=== PATIENT | male | born 1950 | race Caucasian/White ===

== ENCOUNTER 2018-03-28 14:26 | Outpatient (RCR) | payer MEDICARE, OTHER ==
[~2018-03-28 14:26] MED LIST: ASPIR 8181 MG PO; ATORVASTATIN CA20 MG PO; BYSTOLIC10 MG PO; CATAPRES0.2 MG PO; CLONIDINE HCL0.3 MG PO; CLOPIDOGREL75 MG PO; FUROSEMIDE20 MG PO; GABAPENTIN300 MG PO; GLIPIZIDE ER5 MG PO; HUMALOG100 UNIT/3 SQ; Insulin Detemir SQ; LANTUS 3ML100 UNITS/ SQ; LANTUS100 UNITS/ SQ; LISINOPRIL20 MG PO; LISINOPRIL40 MG PO; METFORMIN HCL500 MG PO; NORCO 5-325 TA1 EACH PO; NOVOLOG100 UNIT/1 SQ; NOVOLOG100 UNITS/ SQ; ONGLYZA5 MG PO; TERAZOSIN HCL1 MG PO; TRIAMTERENE-HC1 EAC1 PO; TRIAMTERENE-HCTZ1 EA PO; ULTRAM 50MG50 MG PO; WOUND VAC TOP
== END 2018-04-07 ==
LOC: WCC 14:26
PROVIDERS: ATTEND Podiatrist Foot & Ankle Surgery
DX: E11.65 Type 2 diabetes mellitus with hyperglycemia (principal); E11.621 Type 2 diabetes mellitus with foot ulcer; E11.21 Type 2 diabetes mellitus with diabetic nephropathy; E11.40 Type 2 diabetes mellitus with diabetic neuropathy, unspecified; M86.18 Other acute osteomyelitis, other site; L97.422 Non-pressure chronic ulcer of left heel and midfoot with fat layer exposed; T25.222A Burn of second degree of left foot, initial encounter; S90.512A Abrasion, left ankle, initial encounter; S90.812A Abrasion, left foot, initial encounter; I10 Essential (primary) hypertension; X58.XXXA Exposure to other specified factors, initial encounter; Z01.810 Encounter for preprocedural cardiovascular examination
CPT/HCPCS: 15275 ×2; 29445 ×2; 99213; Q4131 ×2

== ENCOUNTER 2018-05-02 14:47 | Outpatient (RCR) | payer MEDICARE, OTHER ==
[~2018-05-02 14:47] MED LIST changes: +MINERAL OIL/PETROLAT/GLYCERI 6OZ BTL ONE
[2018-05-02] MEDS ORDERED: MINERAL OIL/PETROLAT/GLYCERI 6OZ BTL ONE (17:59)
== END 2018-05-08 ==
LOC: WCC 14:47
PROVIDERS: ATTEND Family Medicine Adult Medicine
DX: E11.65 Type 2 diabetes mellitus with hyperglycemia (principal); E11.21 Type 2 diabetes mellitus with diabetic nephropathy; E11.40 Type 2 diabetes mellitus with diabetic neuropathy, unspecified; E11.621 Type 2 diabetes mellitus with foot ulcer; M86.18 Other acute osteomyelitis, other site; L97.422 Non-pressure chronic ulcer of left heel and midfoot with fat layer exposed; S90.512A Abrasion, left ankle, initial encounter; S90.812A Abrasion, left foot, initial encounter; T25.222A Burn of second degree of left foot, initial encounter; I10 Essential (primary) hypertension; X58.XXXA Exposure to other specified factors, initial encounter; Z01.810 Encounter for preprocedural cardiovascular examination

== ENCOUNTER 2018-06-06 15:00 | Outpatient (RCR) | payer MEDICARE, OTHER ==
[~2018-06-06 15:00] MED LIST changes: -MINERAL OIL/PETROLAT/GLYCERI 6OZ BTL ONE
== END 2018-06-08 ==
LOC: WCC 15:00
PROVIDERS: ATTEND Podiatrist Foot & Ankle Surgery
DX: E11.622 Type 2 diabetes mellitus with other skin ulcer (principal); E11.21 Type 2 diabetes mellitus with diabetic nephropathy; E11.40 Type 2 diabetes mellitus with diabetic neuropathy, unspecified; E11.65 Type 2 diabetes mellitus with hyperglycemia; E11.621 Type 2 diabetes mellitus with foot ulcer; M86.18 Other acute osteomyelitis, other site; L98.491 Non-pressure chronic ulcer of skin of other sites limited to breakdown of skin; T25.222A Burn of second degree of left foot, initial encounter; S90.512A Abrasion, left ankle, initial encounter; S90.812A Abrasion, left foot, initial encounter; I10 Essential (primary) hypertension; X58.XXXA Exposure to other specified factors, initial encounter; Z01.810 Encounter for preprocedural cardiovascular examination

== ENCOUNTER 2018-07-04 12:55 | Outpatient (RCR) | payer MEDICARE, OTHER | END 2018-07-08 | LOC: WCC 12:55 | PROVIDERS: ATTEND Podiatrist Foot & Ankle Surgery | DX: E11.622 Type 2 diabetes mellitus with other skin ulcer (principal); E11.621 Type 2 diabetes mellitus with foot ulcer; E11.65 Type 2 diabetes mellitus with hyperglycemia; E11.21 Type 2 diabetes mellitus with diabetic nephropathy; E11.40 Type 2 diabetes mellitus with diabetic neuropathy, unspecified; M86.18 Other acute osteomyelitis, other site; L98.491 Non-pressure chronic ulcer of skin of other sites limited to breakdown of skin; T25.222A Burn of second degree of left foot, initial encounter; S90.512A Abrasion, left ankle, initial encounter; S90.812A Abrasion, left foot, initial encounter; I10 Essential (primary) hypertension; X58.XXXA Exposure to other specified factors, initial encounter; Z01.810 Encounter for preprocedural cardiovascular examination | CPT/HCPCS: 11042; 15275; 99213 ×2; Q4121 ==

== ENCOUNTER 2018-07-18 13:50 | Outpatient (RCR) | payer MEDICARE, OTHER ==
[2018-10-05] MEDS ORDERED: BACTRIM DS TAB1 EACH PO (11:19)
[2018-10-05] MEDS ORDERED: LISINOPRIL10 MG PO (11:19)
[2018-10-05] MEDS ORDERED: BASAGLAR SC (11:20)
[2018-10-05] MEDS ORDERED: PLAVIX75 MG PO (11:21)
== END 2018-08-08 ==
LOC: WCC 13:50
PROVIDERS: ATTEND Family Medicine
DX: E11.622 Type 2 diabetes mellitus with other skin ulcer (principal); E11.21 Type 2 diabetes mellitus with diabetic nephropathy; E11.65 Type 2 diabetes mellitus with hyperglycemia; E11.40 Type 2 diabetes mellitus with diabetic neuropathy, unspecified; E11.621 Type 2 diabetes mellitus with foot ulcer; M86.18 Other acute osteomyelitis, other site; T25.222A Burn of second degree of left foot, initial encounter; L98.491 Non-pressure chronic ulcer of skin of other sites limited to breakdown of skin; S90.512A Abrasion, left ankle, initial encounter; S90.812A Abrasion, left foot, initial encounter; I10 Essential (primary) hypertension; X58.XXXA Exposure to other specified factors, initial encounter; Z01.810 Encounter for preprocedural cardiovascular examination
CPT/HCPCS: 36415; 82948

== ENCOUNTER 2018-10-10 08:04 | Inpatient (IN) | payer MEDICARE, OTHER ==
[~2018-10-10] VITALS: Ht 177.8 cm; Wt 101.2 kg
[~2018-10-10 08:04] MED LIST changes: +BACTRIM DS TAB1 EACH PO; +BASAGLAR SC; +LISINOPRIL10 MG PO; +PLAVIX75 MG PO
--- OUTSIDE RECORDS SUMMARY | 2018-10-10 08:07 | XMS REPORT ---
Author Author [facility] Address Unknown Phone Unavailable Care Team Providers Care Academic Director Name Role Phone BERNICE HARDING Unavailable Unavailable Problems This patient has no known problems. Allergies, Adverse Reactions, Alerts This patient has no known allergies or adverse reactions. Medications This patient has no known medications. Results Test Description Test Time Test Comments Text Results Atomic Results Result Comments CHEST 2 VIEWS 2018-10-05 11:39:00 [place] [id number] Patient Name: MEREDITH RICE MR #: [id number] : 1950 Age/Sex: 68/M Req #: [id number] Adm Physician: Ordered by: BERNICE HARDING DP Report #: [id number] Location: OR Room/Bed: Procedure: [id number] DX/CHEST 2 VIEWS Exam Date: 10/05/18 Exam Time: 1118 REPORT STATUS: Signed EXAMINATION: CHEST 2 VIEWS COMPARISON: None FINDINGS: TUBES and LINES: None. LUNGS: Lungs are well inflated. Lungs are clear. There is no evidence of pneumonia or pulmonary edema. PLEURA: No pleural effusion or pneumothorax. HEART AND MEDIASTINUM: The cardiomediastinal silhouette is unremarkable. BONES AND SOFT TISSUES: No acute osseous lesion. Soft tissues are unremarkable. UPPER ABDOMEN: No free air under the diaphragm. IMPRESSION: No acute radiographic abnormality. Signed by: Dr. Tian Reid MD on 10/05/2018 11:42 AM Dictated By: TIAN REID MD 1142 Transcribed By: LAYTON on 10/05/18 114 COPY TO: BERNICE TOLEDO DPM
[2018-10-10 10:13] LABS: BILIRUBIN,URINE NEGATIVE (NEGATIVE); CLARITY,URINE CLEAR (CLEAR); COLOR,URINE YELLOW (YELLOW); KETONES,URINE NEGATIVE (NEGATIVE); LEUKOCYTE ESTERASE ,URINE NEGATIVE (NEGATIVE); NITRITE,URINE NEGATIVE (NEGATIVE); PROTEIN,URINE DIPSTICK NEGATIVE (NEGATIVE); URINE UROBILINOGEN 0.2 mg/dL (0.2 - 1)
[2018-10-10 10:16] LABS: INR 0.95; PARTIAL THROMBOPLASTIN TIME 32.2 seconds (23.8-35.5); PROTHROMBIN TIME 13.5 seconds (11.9-14.5)
--- NOTE | 2018-10-10 10:25 | Diagnostic Imaging Report ---
Exam: Left foot series, 3 views. Clinical History: Diabetes, fifth metatarsal symptoms Comparison: None. Findings: No evidence of acute fracture or malalignment. There is a sclerotic appearance at the base of the first second and third metatarsals as well as adjacent cuneiforms. There is also likely fragmentation of the cuneiforms. There is a patchy lytic appearance at the head of the fifth metatarsal and base of the fifth proximal phalanx. There are diffuse vascular calcifications. Large plantar calcaneal spur. Achilles enthesopathy. Impression: Patchy lytic changes at the head of the fifth metatarsal and base of the fifth proximal phalanx could represent osteomyelitis. MRI may be considered for further evaluation. Sclerotic appearance and fragmentation in the mid foot, suggestive of neuropathic foot in this patient with diabetes. Chronic osteomyelitis is also possible in the appropriate clinical context. Signed by: Dr. Munira Sotomayor MD on 10/10/2018 10:22 AM
[2018-10-10 10:26] LABS: WBC,URINE (MAN) 0-5 /HPF (0-5)
[2018-10-10 10:27] LABS: BACTERIA,URINE RARE /HPF; EPITHELIAL CELLS,URINE RARE /LPF
[2018-10-10 10:28] LABS: HYALINE CASTS >15 (0-1)
[2018-10-10] MEDS ORDERED: ONDANSETRON HCL INJ 2 MG/ML VIAL IV PRN (11:15)
[2018-10-10] MEDS ORDERED: VANCOMYCIN 1GM/NS 250 ML 250 ML IV ONE (11:15)
[2018-10-10] MEDS ORDERED: SODIUM CHLORIDE 0.9% 1000ML 1,000 ML IV ONE ×2 (11:15→15:00)
[2018-10-10] MEDS ORDERED: MORPHINE SULFATE 2 MG/ML SYR IV PRN (11:15)
--- NOTE | 2018-10-10 12:11 | NUR ---
LAB NOTIFIED REGARDING LABS THAT HEMOLYZED. RECOLLECTING
[2018-10-10 12:39] LABS: BASOPHILS % 0.4 % (0.0-1.0); EOSINOPHILS # (AUTO) 0.1 (0.0-0.4); EOSINOPHILS % 0.8 % (0.0-6.0); HEMATOCRIT 38.2 % (38.2-49.6); HEMOGLOBIN 12.3 g/dL (14.0-18.0); LYMPHOCYTES # (AUTO) 1.1 (1.0-3.2); LYMPHOCYTES % 11.5 % (18.0-39.1); MEAN CORPUSCULAR HEMOGLOBIN 28.6 pg (28-32); MEAN CORPUSCULAR HGB CONC 32.2 g/dL (31-35); MEAN CORPUSCULAR VOLUME 88.8 fL (81-99); MONOCYTES # (AUTO) 0.9 (0.2-0.8); MONOCYTES % 9.5 % (4.4-11.3); NEUTROPHILS # (AUTO) 7.2 (2.1-6.9); NEUTROPHILS % 77.5 % (38.7-80.0); PLATELET COUNT 270 x10e3/uL (140-360); RED CELL DISTRIBUTION WIDTH 13.2 % (11.7-14.4)
[2018-10-10 12:59] LABS: ALBUMIN 3.4 g/dL (3.5-5.0); ALBUMIN/GLOBULIN RATIO 0.9 (0.8-2.0); ANION GAP 15.7 mmol/L (8-16); CALCIUM 8.9 mg/dL (8.4-10.2); CREATININE, SERUM 3.62 mg/dL (0.72-1.25); MAGNESIUM 2.3 MG/DL (1.3-2.1); POTASSIUM 5.7 mmol/L (3.5-5.1)
[2018-10-10 13:05] LABS: CREATINE KINASE MB 1.6 ng/mL (0-5.0)
[2018-10-10] MEDS ORDERED: SOD POLYSTYRENE SULFONATE SUSP 15 GM/60 ML BTL PO ONE (13:15)
[2018-10-10] MEDS ORDERED: LACTULOSE SYRUP 20 GM/30 ML UDC PO ONE (13:15)
[2018-10-10 14:25] VITALS: BP 98/61
--- NOTE | 2018-10-10 14:25 | NUR ---
PATIENT RECEIVED FROM ER PER STRETCHER. ALERT AND VERBALLY RESPONSIVE. SKIN WARM AND DRY TO TOUCH, RESPIRATION EVEN AND UNLABORED. ABDOMEN SOFT AND NON DISTENDED. WOUND TO SIDE OF LEFT FOOT AND UNDER LEFT GREAT TOE WITH WET TO DRY DRESSING APPLIED; PSORIASIS ALL OVER THE BODY, SKIN TEAR TO RIGHT WRIST, REDNESS TO SACRUM. YELLOW SOCKS APPLIED, URINAL PROVIDED. PATIENT ORIENTED TO SURROUNDINGS. BED IN LOWER POSITION, CALL LIGHT AT REACH. INSTRUCTED TO CALL FOR ASSISTANCE NEEDED. AT BED SIDE.
[2018-10-10] MEDS ORDERED: LACTULOSE SYRUP 20 GM/30 ML UDC PO STA (14:53)
[2018-10-10] MEDS: PIPERACILLIN/TAZO 2.25 GM 50 ML IV SCH ×3 (14:55→23:47)
[2018-10-10] MEDS ORDERED: VANCOMYCIN 1GM/NS 250 ML 250 ML IV SCH ×2 (15:00)
[2018-10-10 15:41] LABS: CREATININE,URINE RANDOM 89.73 mg/dL (63-166)
[2018-10-10] MEDS: SOD POLYSTYRENE SULFONATE SUSP 15 GM/60 ML BTL PO SCH ×2 (15:53→16:00)
[2018-10-10] MEDS: SODIUM CHLORIDE 0.9% 1000ML 1,000 ML IV SCH (15:56)
[2018-10-10 15:59] VITALS: BP 98/61
--- NOTE | 2018-10-10 17:02 | Consultation ---
DATE OF CONSULTATION: October 10, 2018 RENAL CONSULTATION HISTORY OF PRESENT ILLNESS: This is a 68-year-old gentleman, apparently follows up with Dr. Buckner, renal specialist. Brought in for infected foot for debridement tomorrow. Surgery could not be done as an outpatient because his potassium was elevated. He was re-routed here to the hospital. He is currently awake, alert, denies any complaints. Has longstanding history of diabetes with diabetic kidney disease, peripheral vascular disease, diabetic foot ulcer. Also has history of hypertension. He denies any history of kidney stone disease, prostate problems, coronary artery disease, prior CVA. ALLERGIES: HE IS ALLERGIC TO IODINE. CURRENT MEDICATIONS: Include normal saline going at 75 mL an hour. Received 1 dose of vancomycin. He received 60 grams of Kayexalate for his hyperkalemia in the emergency room. He is currently alert, in no apparent distress. His laboratory tests show white count 9.25, hemoglobin 12.3. Potassium 5.7. Bicarbonate 21 with a creatinine 3.62. SOCIAL HISTORY: Patient denies smoking or alcohol use. FAMILY HISTORY: Significant for hypertension. He has got plenty of record of following up with wound care clinic and diabetic foot ulcer. He has had prior appendectomy and rhinoplasty. PHYSICAL EXAMINATION: GENERAL: Awake, alert, lying supine. No apparent distress. VITALS: Blood pressure of 130/60, pulse rate 78, afebrile. HEAD AND NECK: Cornea clear. Mucosa moist. Neck veins flat. LUNGS: Relatively clear. HEART: S1/S2 audible. ABDOMEN: Otherwise soft, nontender. LOWER EXTREMITY EXAMINATION: Shows no edema and dressing noted. IMPRESSION: Hyperkalemia. Mild distal renal tubular acidosis. Underlying diabetic nephropathy with acute kidney injury component. 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 White count noted. To get debridement. Will correct hyperkalemia with dietary control and Kayexalate and lactulose. Avoid nonsteroidal yzoj-qhbrjqnnnxmo-nvwe medication, ZUHAIR and ARB inhibitors. Please see orders. Job#: [id number] EV
--- NOTE | 2018-10-10 19:13 | NUR ---
PT IS RESTING IN BED. NO RESPIRATORY DISTRESS NOTED, BED IN THE LOWEST POSITION, LOCKED, AND CALL LIGHT WITHIN REACH. WILL CONTINUE TO MONITOR.
[2018-10-10 20:00] VITALS: BP 97/55
[2018-10-10 23:29] VITALS: BP 97/55
[2018-10-11] VITALS (7 sets, daily range): BP systolic 105–145; BP diastolic 59–72
[2018-10-11] MEDS: PIPERACILLIN/TAZO 2.25 GM 50 ML IV SCH (05:01)
[2018-10-11 05:35] LABS: BASOPHILS % 0.3 % (0.0-1.0); EOSINOPHILS # (AUTO) 0.1 (0.0-0.4); EOSINOPHILS % 2.1 % (0.0-6.0); HEMATOCRIT 36.8 % (38.2-49.6); LYMPHOCYTES # (AUTO) 1.1 (1.0-3.2); LYMPHOCYTES % 16.3 % (18.0-39.1); MEAN CORPUSCULAR HEMOGLOBIN 28.6 pg (28-32); MEAN CORPUSCULAR HGB CONC 32.6 g/dL (31-35); MEAN CORPUSCULAR VOLUME 87.6 fL (81-99); MONOCYTES # (AUTO) 0.7 (0.2-0.8); MONOCYTES % 10.3 % (4.4-11.3); NEUTROPHILS # (AUTO) 4.8 (2.1-6.9); NEUTROPHILS % 70.7 % (38.7-80.0); PLATELET COUNT 225 x10e3/uL (140-360); RED CELL DISTRIBUTION WIDTH 13.4 % (11.7-14.4)
[2018-10-11 06:02] LABS: ALBUMIN 3.1 g/dL (3.5-5.0); ALBUMIN/GLOBULIN RATIO 0.9 (0.8-2.0); ANION GAP 14.6 mmol/L (8-16); CALCIUM 8.2 mg/dL (8.4-10.2); CREATININE, SERUM 3.93 mg/dL (0.72-1.25); POTASSIUM 3.6 mmol/L (3.5-5.1)
--- NOTE | 2018-10-11 06:31 | History and Physical ---
REASON FOR ADMISSION: Hyperkalemia, vvuhu-sn-ungrkxw kidney disease. HISTORY OF PRESENT ILLNESS: The patient is a gentleman with osteomyelitis of the left foot, who is undergoing elective outpatient surgery where he was then noticed to have worsening of his chronic kidney disease, as well as hyperkalemia. He was admitted for further evaluation prior to his surgical intervention. The patient states he feels good. REVIEW OF SYSTEMS: Denies any chest pain, fever, chills, nausea, vomiting, headache, dizziness. PAST MEDICAL HISTORY: Significant for diabetes, chronic kidney disease, stage 3-4, hypertension. MEDICATIONS: See MAR. ALLERGIES: IODINE. SOCIAL HISTORY: Nondrinker and nonsmoker. FAMILY HISTORY: Noncontributory. PHYSICAL EXAMINATION VITALS: 96.9, pulse 88, blood pressure 122/60, sats 95% on room air. GENERAL: He is in no apparent distress lying in bed. NECK: Supple. No lymphadenopathy. CARDIOVASCULAR: Regular rate and rhythm. LUNGS: Clear to auscultation bilaterally. ABDOMEN: Good bowel sounds. Soft and nontender. EXTREMITIES: No clubbing or cyanosis. The left foot is bandaged. NEUROLOGICAL: Nonfocal. ASSESSMENT AND PLAN 1. Left foot osteomyelitis: Continue with current care per podiatry. Continue with antibiotics. 2. Chronic kidney disease, stage 4 with acute renal failure: Consult renal. 3. Hyperkalemia: The patient has already been given Kayexalate. Repeat the lab values. 4. Diabetes: Continue with current care and monitoring. 5. Hypertension: Continue to monitor while we hold off on his ZUHAIR inhibitor. Please see hospital chart for full details. Job#: [id number] SONAM
[2018-10-11] MEDS: SODIUM CHLORIDE 0.9% 1000ML 1,000 ML IV SCH (06:33)
--- NOTE | 2018-10-11 07:30 | NUR ---
PATIENT SITTING UP IN BED PLAYING ON HIS LAPTOP, NO COMPLAIN VOICED. ALL PERSONAL ITEMS CLOSE TO PATIENT. BED IN LOWER POSITION, CALL LIGHT AT REACH.
[2018-10-11] MEDS: INSULIN LISPRO 100 UNIT/1 ML 3ML VIAL SQ SCH ×3 (08:00→17:00)
[2018-10-11] MEDS: NEBIVOLOL 10 MG TAB PO SCH (09:00)
--- NOTE | 2018-10-11 09:30 | NUR ---
PATIENT REFUSED INSULIN COVERAGE WITH THE BLOOD SUGAR OF 215 STATING "I WILL TAKE MY OWN INSULIN". MD NOTIFIED AND HE SAID THAT IT WAS OK FOR PATIENT TO USE HIS OWN INSULIN.
[2018-10-11] MEDS: GABAPENTIN 300 MG CAP PO SCH ×2 (09:33→17:17)
--- NOTE | 2018-10-11 10:55 | NUR ---
PATIENT OFF UNIT TO RADIOLOGY IN STABLE CONDITION.
--- NOTE | 2018-10-11 11:20 | NUR ---
PATIENT BACK TO UNIT FROM RADIOLOGY, ASSISTED BACK TO BED. CALL LIGHT AT REACH
[2018-10-11] MEDS ORDERED: SODIUM CHLORIDE 0.9% IV SCH (12:15)
[2018-10-11] MEDS ORDERED: CEFEPIME HCL 1 GM VIAL IV SCH (12:15)
[2018-10-11] MEDS ORDERED: DAPTOMYCIN IV SCH (12:15)
[2018-10-11] MEDS: DAPTOMYCIN IV SCH (13:05)
[2018-10-11] MEDS: SODIUM CHLORIDE 0.9% IV SCH (13:05)
[2018-10-11] MEDS: CLOPIDOGREL BISULFATE 75 MG TAB PO SCH (13:05)
--- NOTE | 2018-10-11 13:39 | Diagnostic Imaging Report ---
EXAM: Renal Ultrasound INDICATION: LYDIA COMPARISON: None TECHNIQUE: Transverse and longitudinal images of the kidneys and bladder were obtained. FINDINGS: Right Kidney: Length: Measures 11.6 x 5.6 x 4.9 cm Appearance: Normal echogenicity. Collecting system: No hydronephrosis Stones: None Cyst/Mass: None Left Kidney: Length: Measures 12.1 x 5.0 x 5.3 cm Appearance: Normal echogenicity. Collecting system: No hydronephrosis Stones: None Cyst/Mass: None Bladder: Unremarkable in appearance. Bilateral ureteral jets are noted. The prostate is enlarged, measuring up to 5.3 cm, with a total volume of 63.8 cc. IMPRESSION: No sonographic evidence of hydronephrosis or stone. Prostatomegaly. Signed by: Dr. Munira Sotomayor MD on 10/11/2018 1:36 PM
--- NOTE | 2018-10-11 14:20 | NUR ---
PATIENT OFF UNIT TO RADIOLOGY.
--- NOTE | 2018-10-11 14:26 | Consultation ---
DATE OF CONSULTATION: REASON FOR CONSULTATION: Infection in the foot, chronic kidney disease, diabetes mellitus. HISTORY OF PRESENT ILLNESS: This patient is well known to me from previous admission. He is a 68-year-old who has history of osteomyelitis of the left foot. Had debridement. The patient is known to have history of chronic kidney disease, diabetes mellitus, hypertension. The patient was admitted for debridement, and infectious disease was asked to see him to make recommendation in terms of antibiotic. This patient denies any fever or chills at the present time. PAST MEDICAL HISTORY: Obesity, chronic kidney disease, hyperkalemia, diabetic nephropathy, diabetic neuropathy. ALLERGIES: NKA. SOCIAL HISTORY: There is no smoking, drug use, or alcohol abuse. FAMILY HISTORY: Hypertension and diabetes. LABS: White count 6.9. Hemoglobin 12.0. Sodium 133, potassium 3.6, creatinine 3.93. Patient was started on Neurontin, Zosyn and vancomycin 1 dose. PHYSICAL EXAMINATION GENERAL: He is currently alert and oriented, does not seem to be in acute distress. VITALS: Stable, currently afebrile. HEENT: Not icteric. NECK: Supple. CHEST: Clear. HEART: S1 and S2, no murmur. ABDOMEN: Soft. Bowel sounds present. No tenderness. EXTREMITIES: No edema. Foot dressing is on. IMPRESSION: Concerned about osteomyelitis. He said he did have workup recently. Will put him on daptomycin and cefepime. Obtain deep cultures. Will follow. Job#: [id number]
--- NOTE | 2018-10-11 14:57 | NUR ---
PATIENT BACK TO UNIT FROM RADIOLOGY. IV FLUID INFUSING ORDERED. CALL LIGHT AT REACH.
[2018-10-11] MEDS: CEFEPIME 1GM/NS 0.9% 50 ML 50 ML IV SCH (15:00)
--- NOTE | 2018-10-11 15:08 | Diagnostic Imaging Report ---
TECHNIQUE: Magnetic resonance imaging of the LEFT foot was performed WITHOUT injected contrast. HISTORY: Left foot pain, evaluate for infection COMPARISON: None available. DISCUSSION: Soft tissue ulceration of the lateral forefoot extending to the fifth metatarsal head. Bone marrow edema and T1 replacement within the fifth metatarsal and phalanges. Abnormal signal extends to the base of the metatarsal. The remainder of the bone marrow signal normal. No discrete abscess. IMPRESSION: Ostomy myelitis of the fifth metatarsal in phalanges. Signed by: Dr. Nasim Saha M.D. on 10/11/2018 3:04 PM
[2018-10-11] MEDS: SODIUM BICARBONATE 650 MG TAB PO SCH (17:17)
[2018-10-11] MEDS: ATORVASTATIN 20 MG TAB PO SCH (21:01)
[2018-10-12] VITALS (7 sets, daily range): BP systolic 126–158; BP diastolic 60–85
--- NOTE | 2018-10-12 07:15 | NUR ---
pt up in bed ,no distress noted,pain level 4
[2018-10-12] MEDS: INSULIN LISPRO 100 UNIT/1 ML 3ML VIAL SQ SCH ×3 (08:00→17:00)
[2018-10-12] MEDS: FUROSEMIDE 40 MG TAB PO SCH (08:15)
[2018-10-12] MEDS: NEBIVOLOL 10 MG TAB PO SCH (08:15)
[2018-10-12] MEDS: SODIUM BICARBONATE 650 MG TAB PO SCH ×2 (08:15→17:00)
[2018-10-12] MEDS: GABAPENTIN 300 MG CAP PO SCH ×2 (08:15→17:00)
--- NOTE | 2018-10-12 08:30 | NUR ---
C/O PAIN LEVEL 6 MEDICATED
--- NOTE | 2018-10-12 08:47 | NUR ---
LATE ENTRY: 10/12/2018 CASE MANAGEMENT INITIAL ASSESSMENT Fish Machine Feeder to bedside to discuss plan of care with patient/family. CM/SW role and care transitions discussed. Anticipated discharge plan discussed along with duration of care. CM/SW discussed patients right to make decisions in care. CM/SW work hours given. Patient lives: [facility] Admit/Transfer: ER; NEEDS SKIN GRAFT AND WOUND VAC, BUT K+ WAS TOO HIGH. POA/Emergency contact: LISETH LYONS @ [phone]. PT HAS A DTR WHO SPEAKS [facility] ABOUT DAD'S CARE. Current/Previous Home Health: HAS HAD HH IN THE PAST,BUT DOES NOT REMEMBER AGENCY NAME. PCP/Follow-up Care: KAREN HAN Current/Previous DME: NONE; IND W ADL'S Other Services: NONE Employment Status: SELF EMPLOYED Areas of Concerns: GETTING THE NEEDED SURGERY Referral Needs: NONE AT THIS TIME Education Needs: NEEDED TO BE UPDATED ON LABS. IMM/GRAY given and signed (if applicable): SIGNED AT ADMISSION Goal for discharge: RETURN HOME. CM/SW left business card at the bedside with contact information. Name and number was also written on the patients whiteboard. Patient verbalized understanding of discussion. CM will follow-up with ongoing discharge and transition of care needs. Addendum: 10/12/18 at 0903 by Kristin Carrasquillo CORRECTED LATE ENTRY DATE: 10/11/2018
[2018-10-12] MEDS: CLOPIDOGREL BISULFATE 75 MG TAB PO SCH (09:00)
[2018-10-12] MEDS: MORPHINE SULFATE INJ 4 MG/ML INJ IV PRN ×3 (09:02→22:00)
--- NOTE | 2018-10-12 12:35 | NUR ---
TRANSPORTED TO OR VIA BED
[2018-10-12] MEDS ORDERED: MUPIROCIN 2% OINT 22 GM TUBE ONE (12:36)
[2018-10-12] MEDS ORDERED: BACITRACIN 50,000 UNIT VIAL ONE (12:36)
[2018-10-12] MEDS ORDERED: PIPER-TAZ 3.375 GM 50 ML ONE (13:32)
--- NOTE | 2018-10-12 14:55 | NUR ---
PT RETURNED TO ROOM VIA BED AWAKE,IV INFUSING,DRSG TO LT FOOT CD&I,DENIES PAIN.
[2018-10-12] MEDS ORDERED: FENTANYL CITRATE/PF 100MCG/2 ML INJ ONE (14:58)
--- NOTE | 2018-10-12 15:08 | NUR ---
SPOKE WITH WOUND CARE RE; WOUND VAC
[2018-10-12] MEDS: CEFEPIME 1GM/NS 0.9% 50 ML 50 ML IV SCH (15:10)
[2018-10-12] MEDS ORDERED: EPHEDRINE SULFATE INJ 50 MG/10 ML SYR ONE (15:21)
[2018-10-12] MEDS ORDERED: PHENYLEPHRINE HCL 1% 10 MG/ML VIAL ONE (15:21)
[2018-10-12] MEDS ORDERED: LIDOCAINE HCL 2% LOCAL INJ 5 ML SDV VIAL INJ ONE (15:21)
[2018-10-12] MEDS ORDERED: PROPOFOL IV EMULSION 10 MG/ML 20 ML VIAL ONE (15:21)
[2018-10-12] MEDS ORDERED: ONDANSETRON HCL INJ 2 MG/ML VIAL ONE (15:21)
[2018-10-12] MEDS ORDERED: SEVOFLURANE INHAL SOLN 250 ML PEN BTL ONE (15:21)
--- NOTE | 2018-10-12 16:47 | Consultation ---
DATE OF CONSULTATION: October 12, 2018 PODIATRY CONSULTATION REASON FOR CONSULTATION: Nonhealing ulcer down to bone on the left 5th MPJ. HISTORY OF PRESENT ILLNESS: He has had this ulcer for about 4 weeks. The ulcer is not responding to treatment, to excisional debridement in the office. It is down to the capsule of the bone. I suspected osteomyelitis. He was going to have debridement as outpatient; but secondary to his kidney disease, his potassium has been abnormal. He was admitted for medical management and medical optimization before surgery. He is going to have surgery with debridement of all nonviable tissue and possible application of a graft to fill the void and a wound VAC. PAST MEDICAL HISTORY: Diabetes mellitus. PAST SURGICAL HISTORY: Previous foot surgery. History of previous amputations. ALLERGIES: IV IODINE. REVIEW OF SYSTEMS: Ulcer to the left, nonhealing. LOWER EXTREMITY PHYSICAL EXAMINATION: Pedal pulses are palpable. Capillary filling time 5 seconds. Intrinsic minus type of foot. Protective threshold is absent. Full-thickness ulcer to the left 5th, which is about 5 cm x 3 cm. It is down to the capsule. Base is necrotic. There are localized erythema and edema. No streaking erythema. No evidence of lymphangitis. ASSESSMENT 1. Ulcer, grade 3, left 5th. 2. Diabetes with neuropathy and peripheral vascular disease. PLAN: He is scheduled for a debridement of nonviable tissue to include bone cultures of the area. He is on IV antibiotics by infectious disease. The plan is follow as outpatient at the wound care center. He will need a wound VAC and I suspect IV antibiotics managed by infectious disease. He is to be nonweightbearing to this foot, and I will see him in the wound care center. Job#: [id number]
--- NOTE | 2018-10-12 16:51 | Operative Report ---
DATE OF PROCEDURE: October 12, 2018 PREOPERATIVE DIAGNOSES 1. Ulcer with osteomyelitis, left foot, 5th metatarsophalangeal joint. 2. Diabetes with neuropathy and peripheral vascular disease. POSTOPERATIVE DIAGNOSES 1. Ulcer with osteomyelitis, left foot, 5th metatarsophalangeal joint. 2. Diabetes with neuropathy and peripheral vascular disease. OPERATION PERFORMED: Debridement to include bone, 5th metatarsal head and base of proximal phalanx with wound cultures, irrigation, and application of a graft, left foot. PATHOLOGY: Wound cultures and sensitivities, nonviable tissue at the head of the 5th and the base of the phalanx. COMPLICATIONS: None. CONDITION: Stable. DETAILS OF PROCEDURE: Under mild sedation, the patient was brought to the operating room and placed on the operating table in the supine position. Following IV sedation, anesthesia was obtained with general anesthetic. At this point, the left foot was scrubbed, prepped and draped in the usual aseptic manner. It was then lowered to the table. Attention was then directed to the lateral aspect of 5th MPJ where the ulcer at the lateral aspect was debrided with a 15-blade, removing all nonviable tissue. The head of the 5th metatarsal was soft distally and the base of the proximal phalanx. This was removed utilizing an oscillating saw. It was removed down to clean, viable bed and tissue and hard bone. The copious irrigation of the area was performed with 3,000 mL and bacitracin. At this point, the deficit was then filled with wound graft. A clean dressing was applied. The wound VAC will be applied in PACU. He is to be nonweightbearing to that foot. He is currently on IV antibiotics with infectious disease. I anticipate discharge this weekend if he is able to get a PICC line and arrangements for IV antibiotics outpatient. He will follow up in wound care and he will need a wound VAC which is being preauthorized. Job#: [id number] LENIN
--- NOTE | 2018-10-12 17:20 | NUR ---
WOUND CARE HERE TO APPLY WOUND VAC,PT DENIES PAIN
--- NOTE | 2018-10-12 17:25 | NUR ---
WOUND CARE CONSULT: THIS 68 YO MALE AAOX3 ADMITTED FOR DIABETIC FOOT ULER HAD SURGERY TODAY WITH DR MONTGOMERY FOR LEFT FOOT DEBRIDEMENT TO INCLUDE BONE WITH GRAFT PLACEMENT. HE IS WELL KNOWN TO OUR STAFF IN OUTPATIENT [facility] & HAS BEEN UNDER THE CARE OF DR MONTGOMERY MULTIPLE TIMES FOR DIABETIC ULCERS. 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 THE AREA TO LEFT LATERAL FOOT APPROXIMATELY MEASURES 3X2.5, UNABLE TO VISUALIZE WOUND BED AND DEPTH DUE TO ADAPTIC DRESSING STAPLED IN PLACE OVER GRAFTED WOUND, ACM ULCER APPEARS SLIGHTLY REDDENED, HOWEVER IT DOES ANTHONY. MRI POSITIVE FOR OSTEO. DR DIAS AWARE OF PATIENT AND DR MONTGOMERY REQUEST FOR OUTPATIENT IV ANTIBIOTICS & POSSIBLE DISCHARGE MONDAY. OUTPATIENT WOUND VAC WAS ORDERED TODAY BY [facility], PT HAS MEDICARE AND THOSE VAC'S ARE CONTRACTED THROUGH THIRD [employer] V[employer] CALLED [employer] WHICH WILL BE DELIVERING TO HIS HOUSE PER CONTRACT OF INSURANCE PLAN. PATIENT IS AWARE. NURSE MANN AWARE. DR MONTGOMERY STATED IF PATIENT HAS IV ANTIBIOTICS SET UP FOR OUTPATIENT BY MONDAY HE CAN GO HOME REGUARDLESS IF VAC HAS BEEN DELIVERED TO HIS HOME, HE CAN THEN DISCHARGE WITH DRY DRESSING (4X4 GAUZE, KERLIX [employer] COBAN/ZUHAIR WRAP TO SECURE) TO HIS SURGICAL SITE UNTIL 10-17-18 AT 11:45AM APPT AT OUTPATIENT [facility] WITH DR MONTGOMERY. WOUND VAC APPLIED PER DR MONTGOMERY ORDERS INPATIENT & RUNNING CONTINUOUS @125MMhG. PATIENT NWB STATUS LEFT FOOT, CRUTCHES AT BEDSIDE. CAN USE KNEE WALKER FOR OFFLOADING WELL. WBC: 6.81 WOUND CULTURE/BONE CULTURE PENDING THANK YOU FOR THIS CONSULT. Addendum: 10/12/18 at 1742 by Clarita Saunders RN Amended: Links added.
--- NOTE | 2018-10-12 19:47 | NUR ---
RECEIVED PT IN BED AOX3 .RESPIRATIONS ARE EVEN AND UNLABORED .PT HAS WOUND VAC TO THE LEFT FOOT .TELE 2428 SR BUTTOCKS RED.LEFT AC 20G S/L.CALL LIGHT WITH IN REACH .CONTINUE TO MONITOR
[2018-10-12] MEDS: ATORVASTATIN 20 MG TAB PO SCH (21:00)
[2018-10-13] VITALS (7 sets, daily range): BP systolic 144–171; BP diastolic 72–86
--- NOTE | 2018-10-13 06:24 | NUR ---
PT RESTED DURING THE NIGHT .C/O PAIN GIVEN ORDERED PAIN MEDICATION.CALL LIGHT WITH IN REACH .CONTINUE TO MONITOR
[2018-10-13 06:50] LABS: ALBUMIN 2.9 g/dL (3.5-5.0); ALBUMIN/GLOBULIN RATIO 0.8 (0.8-2.0); ANION GAP 12.3 mmol/L (8-16); CALCIUM 8.6 mg/dL (8.4-10.2); CREATININE, SERUM 1.69 mg/dL (0.72-1.25); POTASSIUM 4.3 mmol/L (3.5-5.1)
--- NOTE | 2018-10-13 07:10 | NUR ---
REPORT GIVEN TO THE ONCOMING NURSE.
--- NOTE | 2018-10-13 07:11 | NUR ---
REPORT GIVEN TO THE ONCOMING NURSE.
--- NOTE | 2018-10-13 07:30 | NUR ---
pt up in bed c/o pain level 6 to lt foot,medicated.wound vac in place,
[2018-10-13] MEDS: MORPHINE SULFATE INJ 4 MG/ML INJ IV PRN ×3 (07:56→21:30)
[2018-10-13] MEDS: INSULIN LISPRO 100 UNIT/1 ML 3ML VIAL SQ SCH ×3 (08:00→17:00)
[2018-10-13] MEDS: FUROSEMIDE 40 MG TAB PO SCH (08:15)
[2018-10-13] MEDS: GABAPENTIN 300 MG CAP PO SCH ×2 (08:15→17:00)
[2018-10-13] MEDS: NEBIVOLOL 10 MG TAB PO SCH (08:15)
[2018-10-13] MEDS: SODIUM BICARBONATE 650 MG TAB PO SCH ×2 (08:15→17:00)
--- NOTE | 2018-10-13 10:00 | NUR ---
DR RAMIREZ HERE
--- NOTE | 2018-10-13 10:52 | Progress Note ---
DATE: SUBJECTIVE: Patient is here for left foot ulcer. The patient continues to have a little pain. Patient also has history of renal insufficiency too. Currently, no complaints. Pain controlled, but is in about 2/10 pain right now. Patient does not want to do LTAC at this time. PHYSICAL EXAMINATION VITAL SIGNS: Patient's temperature is 98.5, blood pressure is 169/86, respirations of 18, pulse of 84, and pulse oximetry 95% on room air. HEENT: Normocephalic, atraumatic. Pupils are reactive to light and accommodation. CVS: S1 and S2 normal. ABDOMEN: Protuberant. EXTREMITIES: Left lower extremity status post I and D and bandage with a wound VAC in place. LABORATORY VALUES: White count is 6.81 from October 11, hemoglobin of 12, hematocrit of 36.8. Chemistries; sodium of 138, BUN is 38, creatinine of 1.69 with a GFR of 41, glucose was 61. MEDICATIONS 1. Lasix 40 mg daily. 2. Bystolic 20 mg daily. 3. Gabapentin 300 mg twice a day. 4. Morphine q.4 hours as needed 2 mg. 5. Atorvastatin 20 mg. 6. Cefepime q.24 hours. 7. Daptomycin q.48. 8. Plavix 75 mg q.d. 9. Ondansetron 4 mg as needed. ASSESSMENT 1. Infected left foot, status post incision and drainage with graft placement. 2. Osteomyelitis. 3. Type 2 diabetes mellitus. 4. Hyperlipidemia. 5. Hypertension. PLAN: To continue on daptomycin and cefepime. Cultures and sensitivities are still pending on the wound culture. We will continue monitoring the patient. Continue with medication and pain control. Further recommendations per clinical course. We will continue to monitor the patient and patient will need antibiotic in the long-term for his osteomyelitis and this has been addressed to the patient, and patient and were thinking about this. Job#: [id number] EVIE
[2018-10-13] MEDS: DAPTOMYCIN IV SCH (13:00)
[2018-10-13] MEDS: SODIUM CHLORIDE 0.9% IV SCH (13:00)
--- NOTE | 2018-10-13 14:02 | NUR ---
PT UP IN BED NO S/S DISCOMFORT
[2018-10-13] MEDS: CEFEPIME 1GM/NS 0.9% 50 ML 50 ML IV SCH (14:30)
[2018-10-13] MEDS: CLOPIDOGREL BISULFATE 75 MG TAB PO SCH (17:00)
--- NOTE | 2018-10-13 18:13 | NUR ---
PT UP IN BED ,DENIES PAIN.WOUND VAC IN PLACE
[2018-10-13] MEDS: ATORVASTATIN 20 MG TAB PO SCH (21:51)
--- NOTE | 2018-10-13 21:53 | NUR ---
Patient laying in bed with HOB slightly elevated. AAO x 4. Patient reports of pain to LLE at 7/10, PRN pain med administered as ordered per MD. No SOB noted. No acute distress noted. Bed at low position and locked. Call light within reach, reminded patient to utilize when assistance is needed, patient voiced understanding. Patient in stable condition and will continue to monitor.
[2018-10-14] VITALS: BP 183/88
[2018-10-14 04:00] VITALS: BP 173/84
--- NOTE | 2018-10-14 07:25 | NUR ---
PT IN BED SLEEPING NO DISTRESS NTOED.
[2018-10-14] MEDS: INSULIN LISPRO 100 UNIT/1 ML 3ML VIAL SQ SCH ×3 (08:00→16:59)
[2018-10-14] MEDS: CLOPIDOGREL BISULFATE 75 MG TAB PO SCH (08:00)
[2018-10-14] MEDS: FUROSEMIDE 40 MG TAB PO SCH (08:00)
[2018-10-14] MEDS: NEBIVOLOL 10 MG TAB PO SCH (08:00)
[2018-10-14] MEDS: GABAPENTIN 300 MG CAP PO SCH ×2 (08:00→16:59)
[2018-10-14] MEDS: SODIUM BICARBONATE 650 MG TAB PO SCH ×2 (08:00→16:59)
--- NOTE | 2018-10-14 09:58 | Progress Note ---
DATE: SUBJECTIVE: Patient is here for diabetic foot ulcer, osteomyelitis, and hrckg-ao-maizary renal insufficiency. MEDICATIONS: Patient is on atorvastatin, cefepime, daptomycin, Lasix, gabapentin, Humalog, morphine sulfate, Bystolic, and sodium bicarbonate. PHYSICAL EXAMINATION VITAL SIGNS: Temperature is 99.7, T-max of 100.1, pulse of 80, respirations of 20, blood pressure is 173/84, pulse oximetry is 97% on room air. HEENT: Normocephalic, atraumatic. Pupils are reactive to light and accommodation. CVS: S1, S2 normal. Regular rate and rhythm. ABDOMEN: Nontender, nondistended. EXTREMITIES: Left lower extremity status post I and D and bandaged with a wound VAC in place. LABORATORY VALUES: White count was 6.8, hemoglobin and hematocrit of 12.0 and 36.8 on 10/11/2018. Chemistries today; sodium was 138, potassium 4.3, BUN of 38, and creatinine of 1.69. Glucose has been running in the 120s to 200s, there was one recording of 61 today. MICROBIOLOGY: Gram stain preliminarily shows Staph aureus and Enterococcus also. ASSESSMENT 1. Infected left foot, status post incision and drainage with graft placement. 2. Osteomyelitis. 3. Type 2 diabetes mellitus. 4. Hyperlipidemia. 5. Hypertension. 6. Wknez-uc-smqzief kidney injury. PLAN 1. To continue with the daptomycin and cefepime. Patient will need long-term antibiotics for osteomyelitis. This has been addressed with the patient. Dr. Harris is on the case. PICC line versus central line or antibiotic long-term access needed. 2. Hypertension. Continue on CV medication. 3. Peripheral arterial disease. Continue with Plavix. 4. Hyperlipidemia. Continue with atorvastatin. Further recommendations per clinical course. We will continue monitoring the patient along with consultants. Job#: [id number]
[2018-10-14 11:30] VITALS: BP 164/80
[2018-10-14] MEDS: MORPHINE SULFATE INJ 4 MG/ML INJ IV PRN (12:54)
--- NOTE | 2018-10-14 13:00 | NUR ---
PT C/O FOOT PAIN,MEDICATED.
[2018-10-14] MEDS: CEFEPIME 1GM/NS 0.9% 50 ML 50 ML IV SCH (14:00)
[2018-10-14 15:44] VITALS: BP 175/82
[2018-10-14] MEDS: DOCUSATE SODIUM 100 MG CAP PO SCH (17:01)
--- NOTE | 2018-10-14 17:01 | NUR ---
pt up in bed denies pain no distress ntoed,wound vac in place.
--- NOTE | 2018-10-14 19:31 | NUR ---
RECEIVED PT IN BED AOX3 .DENIES PAIN .LEFT FOOT WIT DRESSING AND WOUND VAC .NO ACUTE DISTRESS NOTED .CALL LIGHT WITH IN REACH .CONTINUE TO MONITOR
[2018-10-14 20:00] VITALS: BP 162/84
[2018-10-14] MEDS: ATORVASTATIN 20 MG TAB PO SCH (20:53)
[2018-10-15] VITALS (9 sets, daily range): BP systolic 130–169; BP diastolic 66–87
[2018-10-15 05:13] LABS: BASOPHILS % 0.2 % (0.0-1.0); EOSINOPHILS # (AUTO) 0.2 (0.0-0.4); EOSINOPHILS % 2.3 % (0.0-6.0); HEMATOCRIT 38.4 % (38.2-49.6); HEMOGLOBIN 12.6 g/dL (14.0-18.0); LYMPHOCYTES % 11.7 % (18.0-39.1); MEAN CORPUSCULAR HEMOGLOBIN 28.4 pg (28-32); MEAN CORPUSCULAR HGB CONC 32.8 g/dL (31-35); MEAN CORPUSCULAR VOLUME 86.7 fL (81-99); MONOCYTES # (AUTO) 0.9 (0.2-0.8); MONOCYTES % 10.6 % (4.4-11.3); NEUTROPHILS # (AUTO) 6.6 (2.1-6.9); NEUTROPHILS % 75.1 % (38.7-80.0); PLATELET COUNT 240 x10e3/uL (140-360); RED BLOOD COUNT 4.43 x10e6/uL (4.3-5.7)
--- NOTE | 2018-10-15 05:15 | NUR ---
PT DENIES PAIN .NO ACUTE DISTRESS NOTED CALL LIGHT WITH IN REACH .CONTINUE TO MONITOR
[2018-10-15 05:32] LABS: ANION GAP 12.9 mmol/L (8-16); CALCIUM 9.4 mg/dL (8.4-10.2); CREATININE, SERUM 1.4 mg/dL (0.72-1.25); POTASSIUM 3.9 mmol/L (3.5-5.1)
--- NOTE | 2018-10-15 07:20 | NUR ---
PATIENT IN BED RESTING WITH NO DISTRESS NOTED. DENIED PAIN, DRESSING DRY AND INTACT TO LEFT FOOT WITH WOUND VAC IN PLACE. BED IN LOWER POSITION, CALL LIGHT AT REACH.
--- NOTE | 2018-10-15 07:29 | NUR ---
REPORT GIVEN TO THE ON COMING NURSE .
[2018-10-15] MEDS: INSULIN LISPRO 100 UNIT/1 ML 3ML VIAL SQ SCH ×3 (08:00→17:00)
[2018-10-15] MEDS: NEBIVOLOL 10 MG TAB PO SCH (09:34)
[2018-10-15] MEDS: GABAPENTIN 300 MG CAP PO SCH ×2 (09:34→17:19)
[2018-10-15] MEDS: DOCUSATE SODIUM 100 MG CAP PO SCH ×2 (09:34→17:19)
[2018-10-15] MEDS: FUROSEMIDE 40 MG TAB PO SCH (09:34)
[2018-10-15] MEDS: SODIUM BICARBONATE 650 MG TAB PO SCH ×2 (09:34→17:19)
[2018-10-15] MEDS: CLOPIDOGREL BISULFATE 75 MG TAB PO SCH (09:34)
--- NOTE | 2018-10-15 11:55 | NUR ---
PATIENT SITTING UP IN BED PLAYING ON IPAD, DENIED PAIN AT THIS TIME. CALL LIGHT AT REACH.
[2018-10-15] MEDS: SODIUM CHLORIDE 0.9% IV SCH (13:00)
[2018-10-15] MEDS: DAPTOMYCIN IV SCH (13:00)
[2018-10-15] MEDS: CEFEPIME 1GM/NS 0.9% 50 ML 50 ML IV SCH (14:05)
--- NOTE | 2018-10-15 16:17 | NUR ---
CM WAS CALLED BY WOUND CARE NURSE CITLALY TODAY STATING DR MONTGOMERY WANTS TO SPEAK WITH CM WOUND CARE NURSE HAD DR MONTGOMERY ON THE PHONE AND HANDED PHONE TO MYSELF DR MONTGOMERY STATES PT SHOULD HAVE GONE HOME BY NOW SHE STATES DR DIAS IS WAITING FOR CX RESULTS AND THEY ARE BACK SHE IS PERPLEXED BY THE DELAY OF DC DR MONTGOMERY STATES THAT WOUND VAC WILL BE SET UP BY THE WOUND CARE CLINIC AFTER DISCHARGE CM CALLED AND SPOKE WITH DR DIAS SENSITIVITY IS NOT AVAILABLE FOR CX; PLAN DC TOMORROW WHEN SENSITIVITY AVAILABLE PER DR DIAS CM CALLED DR MONTGOMERY AND NOTIFIED HER OF PLAN CM ALSO NOTIFIED PT AND WOUND CARE NURSE CITLALY OF PLAN
--- NOTE | 2018-10-15 19:33 | NUR ---
RECEIVED PT IN BED AOX3 .DENIES PAIN .LEFT FOOT WITH WOUND VAC.CALL LIGHT WITH IN REACH.CONTINUE TO MONITOR.
[2018-10-15] MEDS: ATORVASTATIN 20 MG TAB PO SCH (21:40)
[2018-10-16] VITALS (8 sets, daily range): BP systolic 134–156; BP diastolic 71–90
--- NOTE | 2018-10-16 06:20 | NUR ---
NO ACUTE DISTRESS NOTED CALL LIGHT WITH IN REACH .CONTINUE TO MONITOR
--- NOTE | 2018-10-16 07:13 | NUR ---
PATIENT SITTING UP IN BED WATCHING TV, NO COMPLAIN VOICED. DRESSING INTACT TO LEFT FOOT. URINAL EMPTIED AND CLEANSED. BED IN LOWER POSITION, CALL LIGHT AT REACH.
[2018-10-16] MEDS: INSULIN LISPRO 100 UNIT/1 ML 3ML VIAL SQ SCH ×3 (08:00→17:00)
[2018-10-16] MEDS: FUROSEMIDE 40 MG TAB PO SCH (09:27)
[2018-10-16] MEDS: NEBIVOLOL 10 MG TAB PO SCH (09:27)
[2018-10-16] MEDS: CLOPIDOGREL BISULFATE 75 MG TAB PO SCH (09:27)
[2018-10-16] MEDS: DOCUSATE SODIUM 100 MG CAP PO SCH ×2 (09:27→17:33)
[2018-10-16] MEDS: GABAPENTIN 300 MG CAP PO SCH ×2 (09:27→17:33)
[2018-10-16] MEDS: SODIUM BICARBONATE 650 MG TAB PO SCH ×2 (09:28→17:33)
--- NOTE | 2018-10-16 11:53 | NUR ---
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
--- NOTE | 2018-10-16 12:11 | NUR ---
WOUND CARE DISCHARGE Instructions/ Planning Patient visit regarding discharge planning for today to follow up at Center with Dr. Rivera on 10/17/2018 at 1200. Patient currently on WVAC -125mmHg Continuous and is to continue WVAC use on discharge. Patient verbalizes [employer] awaiting call from him to be able to deliver pump to home. Discharge disposition still pending and patient possibly going to LTC instead of home for continued abx. Patient understands to cancel WVAC if not going home and call to cancel for appt. Will contact outpatient clinic of current findings. subcontract manager aware and awaiting for clarification. He is requiring 4 additional weeks of IV abx and more than likely will require LTAC services but unclear at this time since patient is wanting to discharge home. Addendum: 10/16/18 at 1220 by Jesus Alberto Smith RN Amended: Links added.
--- NOTE | 2018-10-16 13:15 | NUR ---
WOUND CARE STAFF IN TO SEE PATIENT.
[2018-10-16] MEDS: CEFEPIME 1GM/NS 0.9% 50 ML 50 ML IV SCH (14:06)
--- NOTE | 2018-10-16 14:18 | NUR ---
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
--- NOTE | 2018-10-16 16:36 | NUR ---
PATIENT IN BED RESTING WITH NO RESPIRATORY DISTRESS. CALL LIGHT AT REACH.
--- NOTE | 2018-10-16 17:47 | NUR ---
Nutrition Screen Note RD Recommendation for Physician: -Rec ADA diet as medically appropriate (renal function has improved, K WNL) Plan of Care: RD following, monitoring for tolerance and adequacy Nutrition reason for involvement: LOS Primary Diagnose(s): 1. Infected left foot, status post incision and drainage with graft placement. 2. Osteomyelitis. 3. [id number]-tx-[id number] kidney injury. PMH: diabetes, chronic kidney disease, stage 3-4, hypertension. Ht: 70in Wt: 223lb BMI: 32kg/m2 IBW: 166lb RD Assessment: (10/16) Chart reviewed. Labs and meds reviewed. 68yo M, who is admitted for hyperkalemia and LYDIA. Hyperkalemia resolved. Renal function has improved. Visited pt in the room. Pt reports good appetite with 100% recorded meal intake. No GI complains noted. LBM 10/16, per pt. Pt denies any chewing or swallowing difficulty. No recent weight loss reported. Will continue to monitor and follow. Current Diet: renal diabetic diet Malnutrition Evaluation (10/16/2018) The patient does not meet criteria for a specified degree of malnutrition at this time. Will re-evaluate at follow-up as appropriate. Diet Education Needs Assessment: Diet education not indicated. Nutrition Care Level: low Signed: Ally Carcamo, MS, RD, LD
--- NOTE | 2018-10-16 19:46 | NUR ---
RECEIVED PT SITTING ON THE BED AOX3 .LEFT FOOT WITH WOUND VACU .DENIES PAIN CALL LIGHT WITH IN REACH .CONTINUE TO MONITOR
[2018-10-16] MEDS: ATORVASTATIN 20 MG TAB PO SCH (21:45)
[2018-10-17] VITALS (8 sets, daily range): BP systolic 116–158; BP diastolic 53–88
--- NOTE | 2018-10-17 06:07 | NUR ---
PATIENT IN BED RESTING WITH NO RESPIRATORY DISTRESS .DENIES PAIN .CALL LIGHT WITH IN REACH
[2018-10-17] MEDS: INSULIN LISPRO 100 UNIT/1 ML 3ML VIAL SQ SCH ×3 (08:00→17:00)
[2018-10-17] MEDS: GABAPENTIN 300 MG CAP PO SCH ×2 (08:54→17:07)
[2018-10-17] MEDS: DOCUSATE SODIUM 100 MG CAP PO SCH ×2 (08:54→17:07)
[2018-10-17] MEDS: NEBIVOLOL 10 MG TAB PO SCH (08:54)
[2018-10-17] MEDS: CLOPIDOGREL BISULFATE 75 MG TAB PO SCH (08:54)
[2018-10-17] MEDS: FUROSEMIDE 40 MG TAB PO SCH (08:54)
[2018-10-17] MEDS: SODIUM BICARBONATE 650 MG TAB PO SCH ×2 (08:54→17:07)
--- NOTE | 2018-10-17 10:22 | NUR ---
patient resting in bed, pain 4/10 on left foot, dressing is intact with wound vac on left foot, no distress noted, call light in reach
[2018-10-17] MEDS: DAPTOMYCIN IV SCH (12:23)
[2018-10-17] MEDS: SODIUM CHLORIDE 0.9% IV SCH (12:23)
[2018-10-17] MEDS: CEFEPIME 1GM/NS 0.9% 50 ML 50 ML IV SCH (14:30)
--- NOTE | 2018-10-17 15:11 | NUR ---
3 PM CM F/U WITH PT REGARDING DECISION FOR LTAC PT AGREES TO [facility] CHOICE LETTER SIGNED AND ON CHART COPY TO PT SRINIVASA WITH [employer] NOTIFIED OF CONSULT PLAN TRANSFER IN AM MOT INITIATED AND IN ENVELOPE AT DESK
--- NOTE | 2018-10-17 16:07 | NUR ---
WOUND CARE VISIT REQUEST Pt is a 68 y/o pleasant male admitted for non healing diabetic foot ulcer. S/P sx intervention with graft placement by Dr. Rivera. Received instructions by Dr. Rivera to remove VAC and place NSS moist gauze dressing. Dr. Rivera to come visit today to evaluate progress. VAC supplies left at bedside and staple removal kit if needed along with 4x4 gauze, Kerlix and Coban. Educated patient on plan for today. Patient pending possible discharge for tomorrow to [facility] for continued abx with Dr. Jauregui. No recent/ additional labs noted. Procedure: WVAC removed and wound cleansed and irrigated with normal saline. Noted light brown exudate and wound bed not visible secondary to stapled adaptic in place. periwound presents with no redness and light swelling noted to foot. Normal Saline moistened gauze 4x4 applied and bolstered with staggered 4x4 gauze and secured with Kerlix Wrap and Hypafix Tape. Dressing timed, dated and signed. Report given to nurse of Dr. Rivera coming for visit and that patient is aware. Supplies at bedside for dressing change readily available. Thank you Dr. Rivera for allowing me to continue to be a part of his care. Addendum: 10/17/18 at 1617 by Jesus Alberto Smith RN Amended: Links added.
--- NOTE | 2018-10-17 18:34 | NUR ---
patient resting in bed, dressing is intact on left foot, Dr Rivera had rounds, not in any distress
--- NOTE | 2018-10-17 19:00 | NUR ---
Received patient awake on bed, with dressing to the left foot intact. No complaints of pain at this time, call light within easy reached, advised to call for assistance when needed. Will continue to monitor
[2018-10-17] MEDS: ATORVASTATIN 20 MG TAB PO SCH (20:17)
--- NOTE | 2018-10-17 20:49 | Progress Note ---
DATE: October 17, 2018 PODIATRY SURGERY PROGRESS NOTE Patient was seen at bedside. Denies any fever, nausea, vomiting. He is in good spirits he says. He is not happy with being transferred to [facility], but he understands, he already himself. He understands that he needs to go there for IV antibiotics. White blood count, it continues to trend down. Today, the wound VAC was removed. The graft covering was also removed. At this point, the wound bed is granular. There is mild erythema and edema consistent with the level of the surgical intervention. No streaking erythema. No ascending lymphangitis. The wound bed is about 90% granular. The fifth metatarsal bone is exposed at its most proximal aspect, but it is clean, it is not soft, it is intact. Pedal pulses are palpable. Capillary filling time 5 seconds. Intrinsic minus type of foot. History of Charcot, history of previous amputations. His wound cultures are final. He is growing Staphylococcus aureus and Enterococcus faecalis. He is currently on cefepime and daptomycin. ASSESSMENT: 1. Diabetic foot ulcer, grade 3, left foot. 2. Diabetes with neuropathy. 3. History of Charcot foot and previous amputations. PLAN: At this point, I agree with LTAC transfer for IV antibiotics. Regarding the wound care, I would like the wound VAC to continue to be applied. I did remove the outer layer of the graft today. The wound bed is granular and the bone is intact. There are no signs and symptoms of acute infection at this point, and he seems to be responding well to IV antibiotic and local wound care. Once he goes to [facility], I will like for him to follow up at the wound care center for the wound. He probably will be a good candidate for hyperbarics evaluation at the [facility], and plan on keeping the wound VAC for the next 3 to 4 weeks. Discussed care the patient and answered all questions. Job#: [id number]
[2018-10-18] VITALS: BP 128/75
[2018-10-18 04:00] VITALS: BP 144/71
[2018-10-18] MEDS: INSULIN LISPRO 100 UNIT/1 ML 3ML VIAL SQ SCH ×2 (07:42→12:00)
[2018-10-18 08:00] VITALS: BP 131/74
[2018-10-18] MEDS: GABAPENTIN 300 MG CAP PO SCH (08:52)
[2018-10-18] MEDS: SODIUM BICARBONATE 650 MG TAB PO SCH (08:52)
[2018-10-18] MEDS: FUROSEMIDE 40 MG TAB PO SCH (08:52)
[2018-10-18] MEDS: NEBIVOLOL 10 MG TAB PO SCH (08:52)
[2018-10-18] MEDS: DOCUSATE SODIUM 100 MG CAP PO SCH (08:52)
[2018-10-18] MEDS: CLOPIDOGREL BISULFATE 75 MG TAB PO SCH (08:52)
--- NOTE | 2018-10-18 09:10 | NUR ---
patient resting in bed, dressing intact on left foot, no pain verbalized, call light in reach, no distress noted
[2018-10-18 10:56] VITALS: BP 131/74
--- NOTE | 2018-10-18 11:28 | NUR ---
WOUND CARE PROGRESS NOTE AND DISCHARGE PLANNING: Patient transferring to LTAC today for continued IV ABX. VSS and Afebrile. Focused visit today for dressing application and reinforced education for wound care treatment plan. Spoke with Dr. Rivera by telephone and wound care treatment discharge orders to continue WVAC @ -125mmHg Continuous and to be changed TIW at LTAC Facility. Current wound status S/P removal of jose and graft by Dr. Rivera. He probably will be a good candidate for hyperbarics. Evaluation at the [facility], and plan on keeping the wound VAC for the next 3 to 4 weeks.with follow up at wound care center with Dr. Rivera. Dressing changed to Left Lateral foot @ 5th Metatarsal head. Exposed visible bone noted. Periwound hard and calloused. Wound cleansed with NS and 4x4 gauze. Applied Normal Saline moistened gauze dressing and covered with bolstered 4x4 gauze and secured with Kerlix Wrap and Coban Wrap. Spoke with nay Watson at [facility]. Wound care team to evaluate patient wound on arrival. Thank you for continuing to allow me to be a part of his care. Addendum: 10/18/18 at 1145 by Jesus Alberto Smith RN Left Foot 5th Met Head -DFU Grade 3- 3x2.5x 2.5 -w/ Exposed Bone. Addendum: 10/18/18 at 1208 by Jesus Alberto Smith RN Amended: Links added.
[2018-10-18 12:00] VITALS: BP 143/81
--- NOTE | 2018-10-18 12:30 | NUR ---
PT APPROVED TO GO TO [facility] TODAY NUMBER TO CALL REPORT AND ROOM NUMBER GIVEN TO NURSE DC ORDERS OBTAINED
--- NOTE | 2018-10-18 15:16 | NUR ---
Patient discharged to [facility], called report to Darrell CHERRY, denies any pain, no distress noted, at bedside, all personnel belongings taken with patient, dressing is intact on left foot
--- NOTE | 2018-10-22 08:58 | NUR ---
COUNT INCLUDES THE [facility] wound vac pump pickup # [id number]
== END 2018-10-18 14:49 | DRG 629 ==
LOC: ER 08:04 → ERHOLD 11:19 → MED/SURG3 14:14
PROVIDERS: ADMIT Internal Medicine; ATTEND Internal Medicine
PROC: 0QBR0ZZ Excision of Left Toe Phalanx, Open Approach (ICD-10-PCS; 2018-10-12)
PROC: 0QR Lower Bones, Replacement (ICD-10-PCS; 2018-10-12)
PROC: 0QR Lower Bones, Replacement (ICD-10-PCS; 2018-10-12)
PROC: 0QBP0ZZ Excision of Left Metatarsal, Open Approach (ICD-10-PCS; principal; 2018-10-12 14:00)
DX: E11.69 Type 2 diabetes mellitus with other specified complication (principal); M86.672 Other chronic osteomyelitis, left ankle and foot; E11.621 Type 2 diabetes mellitus with foot ulcer; Z79.4 Long term (current) use of insulin; E87.5 Hyperkalemia; N18.4 Chronic kidney disease, stage 4 (severe); I12.9 Hypertensive chronic kidney disease with stage 1 through stage 4 chronic kidney disease, or unspecified chronic kidney disease; E11.42 Type 2 diabetes mellitus with diabetic polyneuropathy; E11.22 Type 2 diabetes mellitus with diabetic chronic kidney disease; N17.9 Acute kidney failure, unspecified; L97.524 Non-pressure chronic ulcer of other part of left foot with necrosis of bone; B95.61 Methicillin susceptible Staphylococcus aureus infection as the cause of diseases classified elsewhere; B95.2 Enterococcus as the cause of diseases classified elsewhere
CPT/HCPCS: 36415; 76770; 80048; 80053; 81001; 82550; 82553; 82570; 82948; 83605; 83735; 84156; 84484; 85025; 85610; 85730; 87040; 87071; 87075; 87086; 87186; 87205; 88304; 88305; 88311; 93005; 97605; 99284; J0692; J2001; J2270; J2370; J2405; J2543; J3370; J7030

== ENCOUNTER → 2020-07-01 | Day surgery (SDC) | payer MEDICARE, OTHER ==
[2020-06-29 09:45] LABS: BASOPHILS % 0.4 % (0.0-1.0); EOSINOPHILS # (AUTO) 0.1 (0.0-0.4); EOSINOPHILS % 1.4 % (0.0-6.0); HEMATOCRIT 42.2 % (38.2-49.6); HEMOGLOBIN 13.7 g/dL (14.0-18.0); LYMPHOCYTES # (AUTO) 1.3 (1.0-3.2); LYMPHOCYTES % 14.3 % (18.0-39.1); MEAN CORPUSCULAR HEMOGLOBIN 28.2 pg (28-32); MEAN CORPUSCULAR HGB CONC 32.5 g/dL (31-35); MEAN CORPUSCULAR VOLUME 86.8 fL (81-99); MONOCYTES # (AUTO) 1.1 (0.2-0.8); MONOCYTES % 11.6 % (4.4-11.3); NEUTROPHILS # (AUTO) 6.7 (2.1-6.9); PLATELET COUNT 251 x10e3/uL (140-360); RED BLOOD COUNT 4.86 x10e6/uL (4.3-5.7); RED CELL DISTRIBUTION WIDTH 13.4 % (11.7-14.4)
[2020-06-29 10:07] LABS: CALCIUM 8.7 mg/dL (8.4-10.2); CREATININE, SERUM 2.02 mg/dL (0.72-1.25)
--- NOTE | 2020-06-29 10:30 | Diagnostic Imaging Report ---
EXAMINATION: CHEST 2 VIEWS INDICATION: Pre-operative COMPARISON: Chest radiograph 10/05/2018 FINDINGS: LINES/TUBES:None LUNGS:The lungs are well-inflated. No focal consolidation or pulmonary edema. PLEURA:No pleural effusion or pneumothorax. MEDIASTINUM:The cardiomediastinal silhouette appears normal in size and shape. BONES/SOFT TISSUES:No acute osseous injury. ABDOMEN:No free air under the diaphragm. IMPRESSION: No focal pneumonia or pulmonary edema. Signed by: David Nath MD on 06/29/2020 10:26 AM
[~2020-07-01] MED LIST changes: +ATROPINE SULFATE 1 MG/ML VIAL ONE; +BUPIVACAINE HCL 0.5% INJ 30 ML VIAL INJ ONE; +CEFAZOLIN SOD 1 GM/NS 50ML 100 ML IV ONE; +DEXTROSE 5% 250ML 250 ML IV ONE; +DOXYCYCLINE HY100 M3 PO; +HYDRALAZINE HCL10 MG PO; +LIDOCAINE HCL 2% LOCAL INJ 5 ML SDV VIAL INJ ONE; +MUPIROCIN 2% OINT 22 GM TUBE ONE; +ONDANSETRON HCL INJ 2MG/ML 2ML 2 MG/ML VIAL ONE; +PROPOFOL IV EMULSION 10 MG/ML 20 ML VIAL ONE; +SEVOFLURANE INHAL SOLN 250 ML PEN BTL ONE; +VANCOMYCIN HCL 1 GM VIAL ONE
[2020-07-01 16:40] VITALS: BP 100/70
--- NOTE | 2020-07-01 22:15 | Operative Report ---
DATE OF PROCEDURE: 07/01/2020 SURGEON: Shannan Killian DPM PREOPERATIVE DIAGNOSIS: Diabetic foot ulcer grade 4, left 4th digit. POSTOPERATIVE DIAGNOSIS: Diabetic foot ulcer grade 4, left 4th digit. PROCEDURE: Amputation left 4th digit. PATHOLOGY: Removed specimen sent for pathology, cultures and sensitivity. ANESTHESIA: General anesthetic. HEMOSTASIS: None. ESTIMATED BLOOD LOSS: Less than 10 mL. MATERIALS: A 2 x 2 human allograft to promote healing. COMPLICATIONS: None. CONDITION: Stable. PROCEDURE IN DETAIL: Under mild sedation, the patient was brought to the operating room, placed on the operating table in supine position. Following IV sedation, anesthesia was obtained with the general anesthetic. At this point, the left foot scrubbed, prepped, and draped in the usual aseptic manner. It was then lowered to the table. Attention was directed to the dorsal aspect of the left foot where a fishmouth type of incision was made overlying the left 4th digit. Incision was deepened down to the level of the bone. He was 1st disarticulated at the PIP joint that was noted to be nonviable tissue and bone down to the area, so it was then disarticulated at the MPJ joint. It was then passed from the operating table and sent for pathology. The area was then flushed with copious amount of normal sterile saline solution with a pressure personnel director. Cultures and sensitivity were taken of the area. Once all nonviable tissue was removed, the area was then closed with a human allograft was then inserted into the area. The area was then closed with 4-0 Vicryl and 4-0 nylon. Clean dressing was applied consisting of Adaptic, 4x4s, Kerlix, and an Clifford bandage. The patient tolerated the procedure and anesthesia well without complications, was transported to recovery room with vital signs stable and vascular status unchanged. The patient will be discharged home when he meets criteria. He was given instructions to be partial weightbearing with the use of a postop shoe to elevate the foot while at rest. Follow up with me in the office and to call the office if any questions, concerns, or new problems arise. Shannan Killian DPM ER/MODL /[id number]
== END | disposition home or self-care (01) ==
LOC: OR 12:23
PROVIDERS: ATTEND Podiatrist Foot & Ankle Surgery
DX: E13.69 Other specified diabetes mellitus with other specified complication (principal); M86.172 Other acute osteomyelitis, left ankle and foot; M86.672 Other chronic osteomyelitis, left ankle and foot; E13.621 Other specified diabetes mellitus with foot ulcer; L97.526 Non-pressure chronic ulcer of other part of left foot with bone involvement without evidence of necrosis; E11.22 Type 2 diabetes mellitus with diabetic chronic kidney disease; I12.9 Hypertensive chronic kidney disease with stage 1 through stage 4 chronic kidney disease, or unspecified chronic kidney disease; N18.9 Chronic kidney disease, unspecified; Z91.041 Radiographic dye allergy status; Z01.810 Encounter for preprocedural cardiovascular examination; Z01.812 Encounter for preprocedural laboratory examination; Z01.818 Encounter for other preprocedural examination; Z11.59 Encounter for screening for other viral diseases; Z79.02 Long term (current) use of antithrombotics/antiplatelets; Z79.4 Long term (current) use of insulin
CPT/HCPCS: 28825; 36415 ×2; 71046; 80048; 82948; 85025; 87071; 87075; 87186; 87205; 88305; 88311; 93005; J0461; J0690; J2001; J2405; J2704; J3370; J7070; Q4150; U0002; 88304